=== PATIENT | female | born 1940 | race African-American/Black ===

== ENCOUNTER 2021-07-14 10:14 | Emergency (ER) | payer MEDICARE, OTHER ==
[~2021-07-14] VITALS: Ht 162.6 cm; Wt 51.3 kg
[~2021-07-14 10:14] MED LIST: ASPI81CH43
[2021-07-14 10:15] VITALS: BP 145/85
[2021-07-14 11:28] LABS: Urine Bacteria NONE SEEN /hpf (None Seen); Urine Blood 2+ /uL (Negative); Urine Mucus FEW (None Seen); Urine Specific Gravity 1.022 (1.001-1.035); Urine WBC 3 /hpf (0 - 5)
[2021-07-14] MEDS ORDERED: PHEN200T16 PO (12:35)
[2021-07-14] MEDS ORDERED: CIPR-173 PO (12:35)
== END 2021-07-14 12:58 | disposition home or self-care (01) ==
LOC: ER 10:14
DX: N39.0 Urinary tract infection, site not specified (principal); Z90.710 Acquired absence of both cervix and uterus
CPT/HCPCS: 81001; 87210

== ENCOUNTER 2021-07-22 09:06 | Emergency (ER) | payer OTHER ==
[~2021-07-22] VITALS: Ht 162.6 cm; Wt 51.7 kg
[~2021-07-22 09:06] MED LIST changes: +CIPR-173 PO; +PHEN200T16 PO
[2021-07-22 09:16] VITALS: BP 133/79
[2021-07-22] MEDS ORDERED: CARB4TAB8 PO (10:53)
== END 2021-07-22 11:03 | disposition home or self-care (01) ==
LOC: ER 09:06
DX: T78.40XA Allergy, unspecified, initial encounter (principal); Z87.440 Personal history of urinary (tract) infections; Z90.710 Acquired absence of both cervix and uterus; X58.XXXA Exposure to other specified factors, initial encounter

== ENCOUNTER 2025-03-03 19:26 | Inpatient (IN) | payer OTHER ==
[~2025-03-03] VITALS: Ht 162.6 cm; Wt 50.3 kg
[~2025-03-03 19:26] MED LIST changes: +CARB4TAB8 PO; +PHEN-922 PO; -PHEN200T16 PO
[2025-03-03 20:23] LABS: Hematocrit 38.6 % (36.0-46.0); Hemoglobin 12.4 g/dL (12.2-16.2); Mean Corpuscular Hemoglobin 28.0 pg (28.0-32.0); Mean Corpuscular Volume 86.8 fL (80.0-100.0); Nucleated Red Blood Cells % 0.0 %
[2025-03-03 20:27] LABS: Urine Protein, UAD 1+ (Negative)
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
[2025-03-03 20:33] LABS: Amphetamine Screen, Urine Neg (NEGATIVE); Barbiturate Scree,Urine Neg (NEGATIVE); Benzodiazephine Screen, Urine Neg (NEGATIVE); Cannabinoid Screen, Urine Neg (NEGATIVE); Cocaine Screen, Urine Neg (NEGATIVE); Opiate Scree,Urine Neg (NEGATIVE); Phencyclidine Screen, Urine Neg (NEGATIVE)
[2025-03-03 20:42] LABS: Alanine Aminotransferase 29 U/L (7-40); Albumin 4.3 g/dL (3.2-4.8); Alkaline Phosphatase 107 U/L (46-116); Anion Gap 11 (5-15); BUN/Creatinine Ratio 15.1 (10.0-20.0); Blood Urea Nitrogen 14 mg/dL (9-23); Calcium 9.6 mg/dL (8.7-10.4); Carbon Dioxide 26 mmol/L (20-31); Chloride 105 mmol/L (98-107); Sodium 142 mmol/L (136-145)
[2025-03-03 20:43] LABS: Bilirubin, Total 0.4 mg/dL (0.2-1.0)
[2025-03-03 20:45] LABS: Glucose 138 mg/dL (74-106); Potassium 3.5 mmol/L (3.5-5.1); Total Protein 8.3 g/dL (5.7-8.2)
[2025-03-04 07:40] VITALS: PULSE 89; RESP 17; O2SAT 99
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
[2025-03-04 19:43] VITALS: PULSE 93; RESP 18; O2SAT 97
[2025-03-04] MEDS: LORazepam 2MG/ML-1ML VIAL IV ONE (20:56)
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
[2025-03-04] MEDS ORDERED: ACETAMINOPHEN 325 MG TAB PO PRN (21:15)
[2025-03-04] MEDS ORDERED: NITROGLYCERIN 0.4 MG SL TAB SL PRN (21:15)
[2025-03-04] MEDS ORDERED: MORPHINE SULFATE INJ 2 MG/ml SYRG IV PRN (21:15)
[2025-03-04] MEDS ORDERED: DOCUSATE SOD 100 MG CAP PO PRN (21:15)
[2025-03-04] MEDS ORDERED: HYDROcodone-ACET 5/325MG TAB PO PRN (21:15)
[2025-03-04] MEDS ORDERED: ONDANSETRON HCL 4 MG/2 ML VIAL IV PRN (21:15)
[2025-03-04] MEDS: SODIUM CHLOR 0.9% PF (SALINE LOCK) 10ML VIAL/SYR IV SCH (22:00)
--- NOTE | 2025-03-04 22:30 | DVH ---
CT HEAD WITHOUT CONTRAST INDICATION: ALOC EXAM DATE: 03/04/2025 10:01 PM COMPARISON: None RADIATION DOSE: CTDIvol: 60.55 mGy, DLP: 1072.04 mGy*cm PROCEDURE: CT scans of the head were obtained from the vertex to the skull base. Sagittal and coronal reconstructions were provided. All CT scans at this medical facility are performed using dose modulation techniques as appropriate to a performed exam including the following: Automated exposure control was utilized; adjustment of the MA and/or KV according to patient size; and use of iterative reconstruction technique. FINDINGS: Evaluation is degraded by streak artifact referable to a presumed aneurysm coil, though clinical correlation is suggested. Within this limitation, there is no acute territorial infarct, intracranial hemorrhage, or mass effect. There are global involutional changes with compensatory prominence of the ventricles and sulci. Patchy periventricular and subcortical white matter hypoattenuation is nonspecific but may be related to small vessel ischemic disease. The orbits are normal. The paranasal sinuses and mastoid air cells are clear. The osseous structures are unremarkable. IMPRESSION: 1. Artifact degraded evaluation without evidence for acute territorial infarct, intracranial hemorrhage, or mass effect. 2. Age-related involutional changes. Chronic microvascular changes.
[2025-03-05 03:58] LABS: Hematocrit 35.1 % (36.0-46.0); Hemoglobin 11.4 g/dL (12.2-16.2); Mean Corpuscular Hemoglobin 27.8 pg (28.0-32.0); Mean Corpuscular Volume 85.7 fL (80.0-100.0); Nucleated Red Blood Cells % 0.1 %
[2025-03-05 04:18] LABS: Alanine Aminotransferase 21 U/L (7-40); Albumin 3.6 g/dL (3.2-4.8); Alkaline Phosphatase 92 U/L (46-116); Anion Gap 10 (5-15); BUN/Creatinine Ratio 14.9 (10.0-20.0); Bilirubin, Total 0.4 mg/dL (0.2-1.0); Blood Urea Nitrogen 10 mg/dL (9-23); Calcium 9.1 mg/dL (8.7-10.4); Carbon Dioxide 25 mmol/L (20-31); Glucose 88 mg/dL (74-106); Potassium 3.8 mmol/L (3.5-5.1); Sodium 144 mmol/L (136-145); Total Protein 6.7 g/dL (5.7-8.2)
[2025-03-05 04:26] LABS: Chloride 109 mmol/L (98-107)
[2025-03-05 08:00] VITALS: PULSE 84; RESP 18; O2SAT 97
[2025-03-05] MEDS: LORazepam 2MG/ML-1ML VIAL IV PRN (08:10)
[2025-03-05 12:42] VITALS: PULSE 80; RESP 20; O2SAT 97
--- NOTE | 2025-03-05 13:26 | DVHPN2 ---
Subjective confused in bed Reviewed: H&P Changes from previous H/P or p: No Changes Eyes: No Pain, No Vision change, No Conjunctivae inflammation, No Eyelid inflammation, No Other, No Redness ENT: No Ear pain, No Ear discharge, No Nose pain, No Nose discharge, No Nose congestion, No Mouth pain, No Mouth swelling, No Throat pain, No Throat swelling, No Other Cardiovascular: No Chest Pain, No Palpitations, No Orthopnea, No Paroxysmal Noc. Dyspnea, No Edema, No Lt Headedness, No Other Respiratory: No Cough, No Dry, No Shortness of breath, No SOB with excertion, No Wheezing, No Hemoptysis, No Pleuritic Pain, No Sputum, No Other Gastrointestinal: No Nausea, No Vomiting, No Abdominal Pain, No Diarrhea, No Constipation, No Melena, No Hematochezia, No Other Genitourinary: No Dysuria, No Frequency, No Incontinence, No Hematuria, No Retention, No Other Musculoskeletal: No other, No neck pain, No shoulder pain, No arm pain, No back pain, No hand pain, No leg pain, No foot pain Skin: No Rash, No Lesions, No Jaundice, No Bruising, No Other Objective Vitals Vital Signs Date Time Temp Pulse Resp B/P (MAP) Pulse Ox O2 Delivery O2 Flow Rate FiO2 03/05/25 12:00 85 17 141/84 (103) 96 03/05/25 08:00 97.9 97.9 03/05/25 08:00 Room Air* 0 21 General Appearance: Other (confused) HEENT: Atraumatic Cardiovascular: Regular rate, Normal S1, Normal S2 Abdomen: Normal bowel sounds Musculoskeletal: Other (moving all extremities) Medications Current Medications Medications Dose Ordered Sig/Mendez Route Start Time Stop Time Status Last Admin Dose Admin Lorazepam 0.5 mg Q8HP PRN IV 03/04/25 21:15 03/05/25 08:10 0.5 MG Sodium Chloride 10 ml Q8HR IV 03/04/25 22:00 03/05/25 06:08 10 ML Acetaminophen/ Hydrocodone Bitart 1 tab Q4HP PRN PO 03/04/25 21:15 Ondansetron HCl 4 mg Q4HP PRN IV 03/04/25 21:15 Docusate Sodium 100 mg BIDPRN PRN PO 03/04/25 21:15 Acetaminophen 650 mg Q6HP PRN PO 03/04/25 21:15 Nitroglycerin 0.4 mg Q5MINP PRN SL 03/04/25 21:15 Morphine Sulfate 2 mg Q30M PRN IV 03/04/25 21:15 Laboratory Results Laboratory Tests 03/05/25 03:30 Chemistry Test 03/05/25 03:30 Albumin 3.6 g/dL (3.2-4.8) Calcium Level 9.1 mg/dL (8.7-10.4) Total Protein 6.7 g/dL (5.7-8.2) LFT Test 03/05/25 03:30 Alanine Aminotransferase (ALT) 21 U/L (7-40) Alkaline Phosphatase 92 U/L (46-116) Aspartate Amino Transferase (AST) 36 U/L (13-40) Total Bilirubin 0.4 mg/dL (0.2-1.0) Urinalysis Test 03/03/25 19:54 Urine Color Yellow (Yellow) Urine Clarity Clear (Clear) Urine pH 6.5 (5.0-9.0) Urine Specific [place] 1.022 (1.001-1.035) Urine Protein 1+ (Negative) H Urine Ketones Negative (Negative) Urine Blood Negative /uL (Negative) Urine Nitrite Negative (Negative) Urine Bilirubin Negative (Negative) Urine Urobilinogen 2 mg/dL (Negative) H Urine Leukocyte Esterase Negative /uL (Negative) Urine RBC 1 /hpf (0 - 4) Urine Microscopic WBC 2 /HPF (0-5) Urine Squamous Epithelial Cells Few /hpf (<5) Urine Bacteria None seen /hpf (None Seen) Urine Hyaline Casts Few /lpf (0 - 2) Urine Mucus Few (None Seen) Urine Glucose Normal mg/dL (Normal) Assessment/Plan Assessment/Plan Altered mental status Encounter for psychiatric assessment CT negative Neurology eval Tele psychiatry Plan discussed with: Other (nurse) Date of Service: Mar 05, 2025 Billing Provider: AYUSH FERREIRA MD Common Visit Codes: [id number] INP/OBS CARE(HIGH) AYUSH FERREIRA MD Mar 05, 2025 13:26
[2025-03-05 16:59] VITALS: PULSE 83; RESP 19; O2SAT 99
[2025-03-05 17:00] VITALS: BP 129/81; PULSE 83; RESP 19; TEMP 98.5; O2SAT 99
--- NOTE | 2025-03-05 19:20 | BSKYNEURO ---
[place] [facility] Note # Demographics Consult Type: General Neurology Patient Location: Inpatient First Name: Salina Last Name: Roby Date of : 1940 Age: 84 Gender: Female Facility: [facility] Time of Initial Page (): 03/05/2025 17:52 First Contact with Site (): 03/05/2025 17:52 # HPI History: 84 yo presented with agitation and confusion. She has had problems with sundowning. Saw telepsychiatry yesterday because she has been having visual and auditory hallucinations for the last several months. She has also had problems with sleep. No history of stroke, glaucoma or macular degenerations # Exam Time of Exam (): 03/05/2025 18:49 Mental Status: - awake - alert and oriented x 3 - follows commands Language: - no aphasia Cranial Nerves: - extra ocular movements intact - PERRLA Motor: - normal strength Cerebellar: - normal cerebellar exam Additional Neurologic Exam: Cognitively had problems with abstraction, learning, calculation and recall, # PMH-FH-SH Past Medical History: - aneurysm Past Surgical History: aneurysm-intraarterial management Social History: - non-smoker - non-drinker Medications: ASA prn # Data Time Head CT personally read by me (): 03/05/2025 19:[address]: - no bleed - per radiologist read # Assessment Impression: - Other suspect underlying cognitive impairment/dementia and given poor sleep and hallucination, could be underlying lewy body dementia Differential Diagnosis: - Ischemic Stroke (Acute) - Seizure # Plan Labs: - Ammonia - TSH - B12 - thiamine RPR Imaging: (urgency: routine): - MRI Brain with AND without contrast Diagnostic Test: - EEG Therapy/Evaluation: - PT/OT evaluation - speech/swallow consultation Other: - If patient has any neurological deterioration please call me back immediately Additional Recommendations: Rec Follow Up with a behavioral neurologist and neuropsychologist for formal neuropsych testing # Demographics First Name: Salina Last Name: Roby Facility: [facility] Yes [place] AUGUSTINE Jr., MD Mar 05, 2025 19:20
[2025-03-05 20:10] VITALS: PULSE 89
[2025-03-05 21:00] VITALS: BP 135/69; PULSE 83; RESP 15; TEMP 98; O2SAT 98
[2025-03-06] VITALS (7 sets, daily range): BP systolic 112–126; BP diastolic 70–85; PULSE 72–121; RESP 16–18; TEMP 98–98.1; O2SAT 95–98
--- NOTE | 2025-03-06 12:57 | DVHPN2 ---
Subjective confused in bed Reviewed: H&P Changes from previous H/P or p: No Changes Eyes: No Pain, No Vision change, No Conjunctivae inflammation, No Eyelid inflammation, No Other, No Redness ENT: No Ear pain, No Ear discharge, No Nose pain, No Nose discharge, No Nose congestion, No Mouth pain, No Mouth swelling, No Throat pain, No Throat swelling, No Other Cardiovascular: No Chest Pain, No Palpitations, No Orthopnea, No Paroxysmal Noc. Dyspnea, No Edema, No Lt Headedness, No Other Respiratory: No Cough, No Dry, No Shortness of breath, No SOB with excertion, No Wheezing, No Hemoptysis, No Pleuritic Pain, No Sputum, No Other Gastrointestinal: No Nausea, No Vomiting, No Abdominal Pain, No Diarrhea, No Constipation, No Melena, No Hematochezia, No Other Genitourinary: No Dysuria, No Frequency, No Incontinence, No Hematuria, No Retention, No Other Musculoskeletal: No other, No neck pain, No shoulder pain, No arm pain, No back pain, No hand pain, No leg pain, No foot pain Skin: No Rash, No Lesions, No Jaundice, No Bruising, No Other Objective Vitals Vital Signs Date Time Temp Pulse Resp B/P (MAP) Pulse Ox O2 Delivery O2 Flow Rate FiO2 03/06/25 08:55 98.1 77 16 120/77 (91) 96 98.1 03/06/25 08:00 Room Air* 0 21 Intake/Output Intake and Output 03/06/25 07:00 Intake Total 800 ml Output Total 200 ml Balance 600 ml Intake Oral 800 ml Output Urine Total 200 ml # Voids 4 General Appearance: Other (confused) HEENT: Atraumatic Cardiovascular: Regular rate, Normal S1, Normal S2 Abdomen: Normal bowel sounds Musculoskeletal: Other (moving all extremities) Medications Current Medications Medications Dose Ordered Sig/Mendez Route Start Time Stop Time Status Last Admin Dose Admin Lorazepam 0.5 mg Q8HP PRN IV 03/04/25 21:15 03/05/25 08:10 0.5 MG Sodium Chloride 10 ml Q8HR IV 03/04/25 22:00 03/05/25 22:00 10 ML Acetaminophen/ Hydrocodone Bitart 1 tab Q4HP PRN PO 03/04/25 21:15 Ondansetron HCl 4 mg Q4HP PRN IV 03/04/25 21:15 Docusate Sodium 100 mg BIDPRN PRN PO 03/04/25 21:15 Acetaminophen 650 mg Q6HP PRN PO 03/04/25 21:15 Nitroglycerin 0.4 mg Q5MINP PRN SL 03/04/25 21:15 Morphine Sulfate 2 mg Q30M PRN IV 03/04/25 21:15 Laboratory Results Laboratory Tests 03/05/25 03:30 Urinalysis Test 03/03/25 19:54 Urine Color Yellow (Yellow) Urine Clarity Clear (Clear) Urine pH 6.5 (5.0-9.0) Urine Specific [place] 1.022 (1.001-1.035) Urine Protein 1+ (Negative) H Urine Ketones Negative (Negative) Urine Blood Negative /uL (Negative) Urine Nitrite Negative (Negative) Urine Bilirubin Negative (Negative) Urine Urobilinogen 2 mg/dL (Negative) H Urine Leukocyte Esterase Negative /uL (Negative) Urine RBC 1 /hpf (0 - 4) Urine Microscopic WBC 2 /HPF (0-5) Urine Squamous Epithelial Cells Few /hpf (<5) Urine Bacteria None seen /hpf (None Seen) Urine Hyaline Casts Few /lpf (0 - 2) Urine Mucus Few (None Seen) Urine Glucose Normal mg/dL (Normal) Assessment/Plan Assessment/Plan Altered mental status Encounter for psychiatric assessment CT negative Neurology eval>EEG seizure rule out, B12 levels Tele psychiatry>not decisional and no 5150 Plan discussed with: Other (nurse) My Orders Orders - AYUSH FERREIRA MD Procedure Category Date Status Time * [employer] Specialist CONS 03/05/25 Transmitted Consult Date of Service: Mar 06, 2025 Billing Provider: AYUSH FERREIRA MD Common Visit Codes: [id number] INP/OBS CARE(HIGH) AYUSH FERREIRA MD Mar 06, 2025 12:57
[2025-03-07 01:00] VITALS: BP 125/73; PULSE 84; RESP 17; TEMP 98.6; O2SAT 98
[2025-03-07 05:00] VITALS: BP 125/87; PULSE 77; RESP 17; TEMP 97.8; O2SAT 96
[2025-03-07 08:00] VITALS: RESP 16; O2SAT 95
[2025-03-07 09:00] VITALS: BP 107/13; PULSE 100; RESP 19; TEMP 98.1; O2SAT 100
[2025-03-07] MEDS: OLANZapine 5 MG TAB PO SCH (12:00)
[2025-03-07 13:00] VITALS: BP 102/68; PULSE 96; RESP 19; TEMP 97.5; O2SAT 98
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
[2025-03-07 17:00] VITALS: BP 113/73; PULSE 96; RESP 20; TEMP 98.3; O2SAT 91
[2025-03-07] MEDS ORDERED: HALOPERIDOL LACTATE 5 MG/ML INJ VIAL IM PRN (17:30)
[2025-03-07] MEDS: DONEPEZIL HYDROCHLORIDE 5 MG TAB PO SCH (22:00)
[2025-03-08 01:00] VITALS: BP 115/84; PULSE 118; RESP 18; O2SAT 97
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
[2025-03-08] MEDS: OLANZapine 5 MG TAB PO ONE (15:19)
[2025-03-08 16:48] VITALS: BP 140/78; PULSE 93; RESP 16; TEMP 97; O2SAT 98
[2025-03-08 20:00] VITALS: PULSE 60; RESP 18
[2025-03-08 21:00] VITALS: BP 121/83; PULSE 58; RESP 18; TEMP 98.4; O2SAT 99
[2025-03-09] VITALS (9 sets, daily range): BP systolic 110–140; BP diastolic 64–83; PULSE 78–134; RESP 15–19; TEMP 97.6–98.3; O2SAT 97–100
[2025-03-09 06:24] LABS: Base Excess -1.1 mmol/L (-2.0-3.0)
--- NOTE | 2025-03-09 07:12 | DVH ---
EXAM: CT HEAD WITHOUT CONTRAST INDICATION: aloc TECHNIQUE: CT of the head without intravenous contrast. Coronal and sagittal reformatted images are submitted. Radiation Dose : 1. Head: CT Dose: CTDI volume is 53.99 mGy. Dose-length product is 755.91 mGy*cm The dose indicators for CT are the volume Computed Tomography (CT) Dose Index (CTDIvol) and the Dose Length Product (DLP), and are measured in units of mGy and mGy-cm, respectively. These indicators are not patient dose, but values generated from the CT scanner acquisition factors. The report includes radiation exposure data for exposures received during this examination. All CT scans at this medical facility are performed using dose modulation techniques as appropriate to a performed exam including the following: Automated exposure control was utilized; adjustment of the MA and/or KV according to patient size; and use of iterative reconstruction technique. COMPARISON: CT HEAD WITHOUT CONTRAST on DOS: 03/04/25. FINDINGS: There is streak artifact from the presence of a metallic density in the midline near the skull base, presumably representing aneurysm coil mass. This severely limits evaluation of the brain parenchyma at that level. There is no evidence of acute intracranial hemorrhage, extra-axial collection, mass effect, midline shift, herniation or hydrocephalus. The ventricles, sulci and cisterns are age appropriate. The joyce-white differentiation is intact. The visualized paranasal sinuses and mastoid air cells are clear. No depressed calvarial fracture. The surrounding soft tissues are unremarkable. IMPRESSION: 1. Limited evaluation due to streak artifact from metallic density. 2. No acute intracranial abnormality.
--- NOTE | 2025-03-09 07:35 | RESUS ---
CODE ASSIST ASSESSSMENT Initial Information Code Assist Date: Mar 09, 2025 Code Assist Time: 05:45 Location of Arrest: [facility] Room # 218A Provider Name DR MCGRATH Time Notified: 05:45 Time PMD returned call: 05:45 Crash Cart Opened and Supplies: Yes Situation Situation comment: PT HAS A HISTORY OF DEMENTIA, WALKS ALL NIGHT WITH ASITTER THIS MORNING HAD A SYNCOPE EPISODE AT [facility]. Background Background: 84-year-old female who came to the ER via EMS for mental health issues. Patient is lives by herself at [place] and [place]. Her 2 children are concerned that she might not be able to take care of herself, with episodes wherein the patient would wander away from her house. Had an episode that patient was climbing an 8 foot wall just to get outside. Assessment Temperature (Fahrenheit): 98.3 Blood Pressure Systolic: 92 Blood Pressure Diastolic: 69 Respiratory Rate: 18 O2 Sat by Pulse Oximetry: 97 Assessment comment: PT LETHARGIC RESPONDS TO STERNAL RUB APPROPIATLY, RESPIRATIONS EVEN REGULAR .BS 138, CT HEAD DONE Recommendations/Interventions Procedures: Accu check Other Interventions PT WAS GIVEN 1L NS BOLUS Outcome Outcome: Transfer to Telemetry Team Members Team Members KODI SANTAMARIA RN HS, ADELA ICU CHARGE, ANISHA MAY CHARGE HARVEY RN, VU MAY, LORE RT KODI FISH Mar 09, 2025 07:35
[2025-03-09] MEDS: OLANZapine 5 MG TAB PO SCH (10:00)
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
--- NOTE | 2025-03-09 15:12 | ECG ---
[facility] Test Date: 2025-03-09 Test Time: 05:59:21 Pat Name: CAROLINE RUFF Department: Respiratoy Room: 0218T A Gender: F [employer] Officer: XIN : 1940 Requested By: RAKESH MOREIRA Order Number: [id number] Reading MD: Nathan Navas Measurements Intervals [place] Rate: 111 P: 265 [place]: 134 QRS: -42 QRSD: 77 T: 41 QT: 338 QTc: 460 Interpretive Statements Ectopic atrial tachycardia, unifocal Left anterior fascicular block Probable anteroseptal infarct, old Electronically Signed On 03-09-2025 18:53:26 PST by Nathan Navas Please click the below link to view image of tracing.
--- NOTE | 2025-03-09 22:49 | DVHINCON2 ---
Date of service: Mar 09, [address] Scottie Guido Reason for Consultation Ativan dementia, advise medications History of Present Illness Ms. Ca is a 84 years old female with a history of UTI, the patient was brought to the [facility] on 03/03/2025 with a chief complaint of cognitive dysfunction. At this time, the patient is sedated, arousable but does not not look at me or talked to me. No family available for the history, the history is obtained from chart review and talking to her nurse Apparently, her children were concerned that she may not able to take of herself, she had episodes where she would wander around her house, he also claimed on 8 ft or to try to get out In the hospital, she is easily agitated and get aggressive Cholesterol consultation, 03/05/2025: The patient was awake, alert and oriented x3, follows commands, no aphasia, no focal weakness numbness [phone] no answer Christina Urinalysis, 03/03/2025: WBC: 2, urine leukocyte esterase: Negative UDS, 03/03/2025: Negative Plasma alcohol, 03/10/2025: Normal CBC, 03/05/25: Unremarkable BMP 03/05/2025: Fine Liver function tests, 03/05/2025: Fine Vitamin B12, 03/07/2025: 483 TSH, 03/07/2025: 0.06 FT4, 03/07/2025: 1.42 CT head, 03/09/2025: 1. Limited evaluation due to streak artifact from metallic density. 2. No acute intracranial abnormality CT head, 03/04/2025: 1. Artifact degraded evaluation without evidence for acute territorial infarct, intracranial hemorrhage, or mass effect. 2. Age-related i nvolutional changes. Chronic microvascular changes. Past Medical History UTI,? History of brain aneurysm or AVM Past Surgical History Hysterectomy, ? Aneurysm clip, aneurysm coiling Family History: Cardiovascular disease G8 MOTHER FH: breast cancer G8 MOTHER Family History Heart disease, breast cancer Social History Unobtainable Allergies: Coded Allergies: Naproxen (Verified Allergy, Unknown, 11/08/17) Home Meds Active Scripts Carbinoxamine Maleate (Carbinoxamine Maleate) 4 Mg Tab, 4 MG PO TID PRN, #30 TAB 0 Refills Prov:FAVOT,NICK PA 07/22/21 Phenazopyridine HCl (Phenazopyridine Hydrochlo) 200 Mg Tab, 200 MG PO TID, #6 TAB Prov:ABRAHAM SHI NIKHIL 07/14/21 Ciprofloxacin Hcl (Cipro) 500 Mg Tab, 500 MG PO BID for 7 Days, #14 TAB Prov:ABRAHAM SHI NIKHIL 07/14/21 Reported Medications Aspirin (Asa) 81 Mg Ch 09/18/11 Current Medications Current Medications Medications (Trade) Dose Ordered Sig/Mendez Route PRN Reason Start Time Stop Time Status Last Admin Olanzapine (ZyPREXA Tablet) 10 mg DAILY PO 03/09/25 10:00 Review of Systems Unobtainable Vital Signs Vital Signs Date Time Temp Pulse Resp B/P (MAP) Pulse Ox O2 Delivery O2 Flow Rate FiO2 03/09/25 17:00 97.7 110 19 132/64 (86) 97 97.7 03/09/25 08:00 Room Air* 0 21 Physical Exam GENERAL EXAM: General: the patient is well developed and nourished. No acute distress. HEENT: Normocephalic, neck is supple, no carotid bruits. No mass.e RESPIRATORY: Normal respiratory effort with symmetrical lung expansion. Lungs clear to auscultation. CARDIOVASCULAR: Regular rate and rhythm with no murmurs. S1, S2. ABDOMEN: Soft, nontender, normal bowel sound NEUROLOGICAL: MENTAL STATUS: See above SPEECH, LANGUAGE, HIGHER CORTICAL FUNCTION: He does not vocalize CRANIAL NERVES: #2: Deferred #3,4,6: Pupils are equal, round and reactive. #5: Facial sensation intact in all three divisions bilaterally. Mandibular strength intact. #7: Facial muscles symmetrical and strength intact. #8: Deferred #9,10: Deferred. #11: Deferred #12: Deferred SENSATION: Okay to painful stimuli MOTOR: Normal tone in the upper and lower extremity. Normal muscle bulk. No fasciculations. No abnormal movements or posturing. He moves the arms and legs REFLEXES: Deep tendon reflexes are symmetrical. No pathological reflexes. CEREBELLAR/COORDINATION: Deferred GAIT/STATION: deferred. Labs/Diagnostic Data Labs Test 03/09/25 06:18 03/09/25 06:11 03/09/25 05:52 03/07/25 03:11 Range/Units Blood Gas Specimen Type Arterial Blood Gas Sample Site Right radial Blood Gas Patient Temperature 37.0 Arterial Blood Date Drawn [id number] Arterial Blood pH 7.415 7.350-7.450 Arterial Blood Partial Pressure CO2 36.8 32.0-45.0 mmHg Arterial Blood Partial Pressure O2 74.7 L 83.0-108.0 mmHg Arterial Blood HCO3 23.1 21.0-28.0 mmol/L Arterial Blood Oxygen Saturation 94.7 94.0-98.0 % Arterial Blood Base Excess -1.1 -2.0-3.0 mmol/L Arterial Blood Oxyhemoglobin 93.5 L 94.0-98.0 % Arterial Blood Carboxyhemoglobin 0.8 0.5-1.5 % Arterial Blood Methemoglobin 0.5 0.0-1.5 % Kelvin Test Yes Blood Gas Total Hemoglobin 12.70 12.0-16.0 g/dL Blood Gas Modality Room air FiO2 % 21.0 Magnesium Level 2.0 1.6-2.6 mg/dL Treponema pallidum Antibody Non-reactive Negative POC Glucose 132 H 70-106 mg/dl Ammonia < 10 L 11-32 umol/L Vitamin B12 Level 483 211-911 pg/mL Thyroid Stimulating Hormone (TSH) 0.06 L 0.55-4.78 uIU/mL Free Thyroxine (T4) Calculated 1.42 0.89-1.76 ng/dL Test 03/05/25 03:30 03/03/25 20:04 03/03/25 19:54 Range/Units White Blood Count 4.7 # 4.4-10.8 10^3/uL Red Blood Count 4.10 4.0-5.20 10^6/uL Hemoglobin 11.4 L 12.2-16.2 g/dL Hematocrit 35.1 L 36.0-46.0 % Mean Corpuscular Volume 85.7 80.0-100.0 fL Mean Corpuscular Hemoglobin 27.8 L 28.0-32.0 pg Mean Corpuscular Hemoglobin Concent 32.4 32.0-36.0 g/dL Red Cell Distribution Width 15.2 H 11.8-14.3 % Platelet Count 173 140-450 10^3/uL Mean Platelet Volume 8.6 6.9-10.8 fL Neutrophils (%) (Auto) 41.9 37.0-80.0 % Lymphocytes (%) (Auto) 42.6 10.0-50.0 % Monocytes (%) (Auto) 11.7 0.0-12.0 % Eosinophils (%) (Auto) 3.1 0.0-7.0 % Basophils (%) (Auto) 0.7 0.0-2.0 % Neutrophils # (Auto) 2.0 1.6-8.6 10 ^3/uL Lymphocytes # (Auto) 2.0 0.4-5.4 10 ^3/uL Monocytes # (Auto) 0.6 0-1.3 10 ^3/uL Eosinophils # (Auto) 0.1 0-0.8 10 ^3/uL Basophils # (Auto) 0 0-0.2 10 ^3/uL Nucleated Red Blood Cells 0.1 % Sodium Level 144 136-145 mmol/L Potassium Level 3.8 3.5-5.1 mmol/L Chloride Level 109 H 98-107 mmol/L Carbon Dioxide Level 25 20-31 mmol/L Anion Gap 10 5-15 Blood Urea Nitrogen 10 9-23 mg/dL Creatinine 0.67 0.550-1.02 mg/dL Glomerular Filtration Rate Calc 85 >90 mL/min BUN/Creatinine Ratio 14.9 10.0-20.0 Serum Glucose 88 74-106 mg/dL Calcium Level 9.1 8.7-10.4 mg/dL Total Bilirubin 0.4 0.2-1.0 mg/dL Aspartate Amino Transferase (AST) 36 13-40 U/L Alanine Aminotransferase (ALT) 21 7-40 U/L Alkaline Phosphatase 92 46-116 U/L Total Protein 6.7 5.7-8.2 g/dL Albumin 3.6 3.2-4.8 g/dL Plasma/Serum Blood Alcohol < 3.0 <10 mg/dL Urine Color Yellow Yellow Urine Clarity Clear Clear Urine pH 6.5 5.0-9.0 Urine Specific [place] 1.022 1.001-1.035 Urine Protein 1+ H Negative Urine Ketones Negative Negative Urine Blood Negative Negative /uL Urine Nitrite Negative Negative Urine Bilirubin Negative Negative Urine Urobilinogen 2 H Negative mg/dL Urine Leukocyte Esterase Negative Negative /uL Urine RBC 1 0 - 4 /hpf Urine Microscopic WBC 2 0-5 /HPF Urine Squamous Epithelial Cells Few <5 /hpf Urine Bacteria None seen None Seen /hpf Urine Hyaline Casts Few 0 - 2 /lpf Urine Mucus Few None Seen Urine Glucose Normal Normal mg/dL Urine Opiates Screen Neg NEGATIVE Urine Fentanyl Screen Neg NEGATIVE Urine Barbiturates Screen Neg NEGATIVE Urine Phencyclidine Screen Neg NEGATIVE Urine Amphetamines Screen Neg NEGATIVE Urine Benzodiazepines Screen Neg NEGATIVE Urine Cocaine Screen Neg NEGATIVE Urine Cannabinoids Screen Neg NEGATIVE Assessment Cognitive dysfunction Dementia/Alzheimer disease, based on documentation in the chart, the patient may not have advanced dementia yet Metabolic encephalopathy Toxic encephalopathy Abnormal CT brain, ? Coiled aneurysm Plan/Recommendation Monitoring Supportive treatment Telemetry EEG MRI head Aricept Olanzapine Avoid carbinoxamine, Benadryl and similar medications A trial of Remeron 15 mg at bedtime for insomnia and behavior More recommendation per clinical course Prognosis: Poor This medical document was created using an electronic medical record system with [employer] dictation system. Although this document has been carefully reviewed, there may still be some phonetic and typographical errors. These areas are purely typographical due to imperfections of the software programs, and do not reflect any compromise in the patient's medical care. Plan discussed with: Other DILIA VEGA MD Mar 09, 2025 22:49
[2025-03-10] VITALS (8 sets, daily range): BP systolic 103–144; BP diastolic 67–89; PULSE 78–140; RESP 14–18; TEMP 97.2–97.8; O2SAT 98–100
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
[2025-03-10] MEDS: SODIUM CHLORIDE 0.9% 500 ML IV ONE (17:25)
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
[2025-03-10] MEDS: MIRTAZAPINE 30 MG TAB PO SCH (22:00)
[2025-03-11 01:00] VITALS: BP 125/68; PULSE 127; RESP 16; TEMP 97.5; O2SAT 98
[2025-03-11 08:00] VITALS: O2SAT 98
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
[2025-03-11 18:51] VITALS: BP 119/81; PULSE 96; RESP 17; TEMP 98.6; O2SAT 99
[2025-03-11 20:00] VITALS: O2SAT 98
--- NOTE | 2025-03-11 20:36 | DVHPN2 ---
Progress Note - Dictate Date Seen: Mar 11, 2025 Medical Necessity Reason Pt with a Central, PICC or Fol: No Subjective Ms. Ca is a 84 years old female with a history of UTI, the patient was brought to the [facility] on 03/03/2025 with a chief complaint of cognitive dysfunction. I have seen and examined the patient, talked to her nurse, ju, she is awake, walking in the room, she is oriented to person, place, not a good historian She is not cooperative with her medications Past medical history: Golf ball size brain aneurysm, cervical cancer Past surgical history: Brain aneurysm accordingly in the [facility] in early 1999. Hysterectomy Family history: Heart attack, stomach cancer Social history: She was tobacco smoke, but no history of drug/alcohol abuse Urinalysis, 03/03/2025: WBC: 2, urine leukocyte esterase: Negative UDS, 03/03/2025: Negative Plasma alcohol, 03/10/2025: Normal CBC, 03/05/25: Unremarkable BMP 03/05/2025: Fine Liver function tests, 03/05/2025: Fine Vitamin B12, 03/07/2025: 483 TSH, 03/07/2025: 0.06 FT4, 03/07/2025: 1.42 CT head, 03/09/2025: 1. Limited evaluation due to streak artifact from metallic density. 2. No acute intracranial abnormality CT head, 03/04/2025: 1. Artifact degraded evaluation without evidence for acute territorial infarct, intracranial hemorrhage, or mass effect. 2. Age-related involutional changes. Chronic microvascular changes. vital signs Vital Sign Date Time Temp Pulse Resp B/P (MAP) Pulse Ox O2 Delivery O2 Flow Rate FiO2 03/11/25 18:51 98.6 96 17 119/81 (94) 99 98.6 03/11/25 08:00 Room Air* 0 21 Total Intake and Output 03/10/25 03/10/25 03/11/25 15:00 23:00 07:00 Intake Total 240 ml 480 ml Balance 240 ml 480 ml medications Current Medications Medications Dose Ordered Sig/Mendez Route Start Time Stop Time Status Last Admin Dose Admin Lorazepam 0.5 mg Q8HP PRN IV 03/04/25 21:15 03/09/25 16:25 0.5 MG Sodium Chloride 10 ml Q8HR IV 03/04/25 22:00 03/11/25 16:13 10 ML Acetaminophen/ Hydrocodone Bitart 1 tab Q4HP PRN PO 03/04/25 21:15 Ondansetron HCl 4 mg Q4HP PRN IV 03/04/25 21:15 Docusate Sodium 100 mg BIDPRN PRN PO 03/04/25 21:15 Acetaminophen 650 mg Q6HP PRN PO 03/04/25 21:15 Nitroglycerin 0.4 mg Q5MINP PRN SL 03/04/25 21:15 Morphine Sulfate 2 mg Q30M PRN IV 03/04/25 21:15 Donepezil HCl 5 mg HS PO 03/07/25 22:00 03/09/25 21:53 5 MG Haloperidol Lactate 5 mg Q6HP PRN IM 03/07/25 17:30 Olanzapine 10 mg DAILY PO 03/09/25 10:00 Mirtazapine 15 mg HS PO 03/10/25 22:00 objective General: the patient is well developed and nourished. No acute distress. MENTAL STATUS: See above SPEECH, LANGUAGE, HIGHER CORTICAL FUNCTION: He does not vocalize CRANIAL NERVES: Pupils are equal, round and reactive. Normal conjugated eye movement Facial sensation intact in all three divisions bilaterally. Mandibular strength intact. Facial muscles symmetrical and strength intact. SENSATION: Okay to painful stimuli MOTOR: Normal tone in the upper and lower extremity. Normal muscle bulk. No fasciculations. No abnormal movements or posturing. Muscle power feels normal REFLEXES: Deep tendon reflexes are symmetrical. No pathological reflexes. CEREBELLAR/COORDINATION: No ataxia Gait: Unremarkable laboratory and microbiology Laboratory Tests 03/05/25 03:30 Test 03/05/25 03:30 Range/Units Serum Glucose 88 74-106 mg/dL Problem List Cognitive dysfunction Dementia/ ? 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 for agitation More recommendation per clinical course This medical document was created using an electronic medical record system with [employer] dictation system. Although this document has been carefully reviewed, there may still be some phonetic and typographical errors. These areas are purely typographical due to imperfections of the software programs, and do not reflect any compromise in the patient's medical care. Prognosis poor Dietary Evaluation Review Comments: Needs assistance for meal arrangement Refer to social for conderation of placement after d/c Expected Outcomes/Goals: gradual wt gains Plan discussed with: Other Total Time (mins): 35 DILIA VEGA MD Mar 11, 2025 20:36
[2025-03-12 05:00] VITALS: BP 111/63; PULSE 73; RESP 17; TEMP 97.4; O2SAT 99
[2025-03-12 08:00] VITALS: O2SAT 98
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
[2025-03-12 13:00] VITALS: BP 133/90; PULSE 88; RESP 18; TEMP 98.1; O2SAT 100
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
[2025-03-12 17:00] VITALS: BP 119/79; PULSE 118; RESP 16; TEMP 98.4; O2SAT 98
[2025-03-12] MEDS: Ensure HIGH Protein Chocolate 8oz Bottle PO SCH (18:00)
[2025-03-12 20:00] VITALS: O2SAT 98
--- NOTE | 2025-03-12 20:01 | DVHPN2 ---
Progress Note - Dictate Date Seen: Mar 12, 2025 Medical Necessity Reason Pt with a Central, PICC or Fol: No Subjective Ms. Ca is a 84 years old female with a history of UTI, the patient was brought to the [facility] on 03/03/2025 with a chief complaint of cognitive dysfunction. I have seen and examined the patient, talked to her nurse, ju, she is awake, she is oriented to person, place, she knows year and month, she is cooperative with me but was not with her nurse Tele psychiatrist consultation appreciated Past medical history: Golf ball size brain aneurysm, cervical cancer Past surgical history: Brain aneurysm accordingly in the [place] in early 1999. Hysterectomy Family history: Heart attack, stomach cancer Social history: She was tobacco smoke, but no history of drug/alcohol abuse Urinalysis, 03/03/2025: WBC: 2, urine leukocyte esterase: Negative UDS, 03/03/2025: Negative Plasma alcohol, 03/10/2025: Normal CBC, 03/05/25: Unremarkable BMP 03/05/2025: Fine Liver function tests, 03/05/2025: Fine Vitamin B12, 03/07/2025: 483 TSH, 03/07/2025: 0.06 FT4, 03/07/2025: 1.42 CT head, 03/09/2025: 1. Limited evaluation due to streak artifact from metallic density. 2. No acute intracranial abnormality CT head, 03/04/2025: 1. Artifact degraded evaluation without evidence for acute territorial infarct, intracranial hemorrhage, or mass effect. 2. Age-related involutional changes. Chronic microvascular changes. vital signs Vital Sign Date Time Temp Pulse Resp B/P (MAP) Pulse Ox O2 Delivery O2 Flow Rate FiO2 03/12/25 17:00 98.4 118 16 119/79 (92) 98 98.4 03/12/25 08:00 Room Air* 0 21 Total Intake and Output 03/11/25 03/11/25 03/12/25 15:00 23:00 07:00 Intake Total 20 ml 200 ml Balance 20 ml 200 ml medications Current Medications Medications Dose Ordered Sig/Mendez Route Start Time Stop Time Status Last Admin Dose Admin Lorazepam 0.5 mg Q8HP PRN IV 03/04/25 21:15 03/09/25 16:25 0.5 MG Sodium Chloride 10 ml Q8HR IV 03/04/25 22:00 03/10/25 05:50 10 ML Acetaminophen/ Hydrocodone Bitart 1 tab Q4HP PRN PO 03/04/25 21:15 Ondansetron HCl 4 mg Q4HP PRN IV 03/04/25 21:15 Docusate Sodium 100 mg BIDPRN PRN PO 03/04/25 21:15 Acetaminophen 650 mg Q6HP PRN PO 03/04/25 21:15 Nitroglycerin 0.4 mg Q5MINP PRN SL 03/04/25 21:15 Morphine Sulfate 2 mg Q30M PRN IV 03/04/25 21:15 Donepezil HCl 5 mg HS PO 03/07/25 22:00 03/09/25 21:53 5 MG Haloperidol Lactate 5 mg Q6HP PRN IM 03/07/25 17:30 Olanzapine 10 mg DAILY PO 03/09/25 10:00 Mirtazapine 15 mg HS PO 03/10/25 22:00 Enteral Nutritional Formula 240 ml TIDWM PO 03/12/25 18:00 03/12/25 18:00 240 ML objective General: the patient is well developed and nourished. No acute distress. MENTAL STATUS: See above SPEECH, LANGUAGE, HIGHER CORTICAL FUNCTION: He does not vocalize CRANIAL NERVES: Pupils are equal, round and reactive. Normal conjugated eye movement Facial sensation intact in all three divisions bilaterally. Mandibular strength intact. Facial muscles symmetrical and strength intact. SENSATION: Okay to painful stimuli MOTOR: Normal tone in the upper and lower extremity. Normal muscle bulk. No fasciculations. No abnormal movements or posturing. Muscle power feels normal REFLEXES: Deep tendon reflexes are symmetrical. No pathological reflexes. CEREBELLAR/COORDINATION: No ataxia Gait: Unremarkable laboratory and microbiology Laboratory Tests 03/05/25 03:30 Test 03/05/25 03:30 Range/Units Serum Glucose 88 74-106 mg/dL Problem List Cognitive dysfunction Dementia ? Alzheimer disease Psychosis Metabolic encephalopathy Toxic encephalopathy Abnormal CT brain, likely Coiled aneurysm Assessment/Plan Monitoring Supportive treatment Telemetry EEG MRI head Remeron Aricept Olanzapine 10 mg daily Haldol as needed for agitation Avoid carbinoxamine, Benadryl and similar medications Remeron 15 mg at bedtime for insomnia and behavior Haldol 5 mg muscular injection p.r.n. for agitation More recommendation per clinical course This medical document was created using an electronic medical record system with [employer] dictation system. Although this document has been carefully reviewed, there may still be some phonetic and typographical errors. These areas are purely typographical due to imperfections of the software programs, and do not reflect any compromise in the patient's medical care. Prognosis poor Dietary Evaluation Review Comments: Needs assistance for meal arrangement Refer to social for conderation of placement after d/c Expected Outcomes/Goals: gradual wt gains Plan discussed with: Other DILIA VEGA MD Mar 12, 2025 20:01
[2025-03-12 21:00] VITALS: BP 128/85; PULSE 125; RESP 16; TEMP 98; O2SAT 97
--- NOTE | 2025-03-13 06:30 | DVH ---
CHEST RADIOGRAPH Indication: SOB Technique: Single frontal view of the chest was obtained COMPARISON: None FINDINGS: Lines and Tubes: None Lungs: Mild pulmonary vascular congestion Pleura: No effusion. No pneumothorax. Cardiomediastinal contours: Unremarkable Bones: Unremarkable IMPRESSION: Mild pulmonary vascular congestion.
[2025-03-13 09:00] VITALS: BP 135/63; PULSE 73; RESP 14; TEMP 98; O2SAT 100
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
[2025-03-13 13:00] VITALS: BP 119/71; PULSE 71; RESP 18; TEMP 97.8; O2SAT 100
[2025-03-13 17:00] VITALS: BP 122/79; PULSE 63; RESP 18; TEMP 97.6; O2SAT 98
[2025-03-13 21:00] VITALS: BP 115/79; PULSE 85; RESP 18; TEMP 97.8; O2SAT 97
--- NOTE | 2025-03-13 21:40 | DVHPN2 ---
Progress Note - Dictate Date Seen: Mar 13, 2025 Medical Necessity Reason Pt with a Central, PICC or Fol: No Subjective Ms. Ca is a 84 years old female with a history of UTI, the patient was brought to the [facility] on 03/03/2025 with a chief complaint of cognitive dysfunction. I was asked to see him because he is not cooperative with her nurse. She referred her medications all she would only take it if doctor said so When I talked to her, she was alert, oriented to person, place, I have discussing, she still refused all her medications I have seen and examined the patient, talked to her nurse, ju, she is awake, she is oriented to person, place, she knows year and month, she is cooperative with me but was not with her nurse Urinalysis, 03/03/2025: WBC: 2, urine leukocyte esterase: Negative UDS, 03/03/2025: Negative Plasma alcohol, 03/10/2025: Normal CBC, 03/05/25: Unremarkable BMP 03/05/2025: Fine Liver function tests, 03/05/2025: Fine Vitamin B12, 03/07/2025: 483 TSH, 03/07/2025: 0.06 FT4, 03/07/2025: 1.42 CT head, 03/09/2025: 1. Limited evaluation due to streak artifact from metallic density. 2. No acute intracranial abnormality CT head, 03/04/2025: 1. Artifact degraded evaluation without evidence for acute territorial infarct, intracranial hemorrhage, or mass effect. 2. Age-related involutional changes. Chronic microvascular changes. vital signs Vital Sign Date Time Temp Pulse Resp B/P (MAP) Pulse Ox O2 Delivery O2 Flow Rate FiO2 03/13/25 20:05 Room Air* 0 21 03/13/25 17:00 97.6 63 18 122/79 (93) 98 97.6 Total Intake and Output 03/12/25 03/12/25 03/13/25 15:00 23:00 07:00 Intake Total 240 ml 10 ml Balance 240 ml 10 ml medications Current Medications Medications Dose Ordered Sig/Mendez Route Start Time Stop Time Status Last Admin Dose Admin Lorazepam 0.5 mg Q8HP PRN IV 03/04/25 21:15 03/09/25 16:25 0.5 MG Sodium Chloride 10 ml Q8HR IV 03/04/25 22:00 03/13/25 14:00 10 ML Acetaminophen/ Hydrocodone Bitart 1 tab Q4HP PRN PO 03/04/25 21:15 Ondansetron HCl 4 mg Q4HP PRN IV 03/04/25 21:15 Docusate Sodium 100 mg BIDPRN PRN PO 03/04/25 21:15 Acetaminophen 650 mg Q6HP PRN PO 03/04/25 21:15 Nitroglycerin 0.4 mg Q5MINP PRN SL 03/04/25 21:15 Morphine Sulfate 2 mg Q30M PRN IV 03/04/25 21:15 Donepezil HCl 5 mg HS PO 03/07/25 22:00 03/12/25 21:57 5 MG Haloperidol Lactate 5 mg Q6HP PRN IM 03/07/25 17:30 Mirtazapine 15 mg HS PO 03/10/25 22:00 03/12/25 21:57 15 MG Enteral Nutritional Formula 240 ml TIDWM PO 03/12/25 18:00 03/13/25 18:00 240 ML Quetiapine Fumarate 25 mg BID PO 03/13/25 22:00 objective General: the patient is well developed and nourished. No acute distress. MENTAL STATUS: See above SPEECH, LANGUAGE, HIGHER CORTICAL FUNCTION: He does not vocalize CRANIAL NERVES: Pupils are equal, round and reactive. Normal conjugated eye movement Facial sensation intact in all three divisions bilaterally. Mandibular strength intact. Facial muscles symmetrical and strength intact. SENSATION: Okay to painful stimuli MOTOR: Normal tone in the upper and lower extremity. Normal muscle bulk. No fasciculations. No abnormal movements or posturing. Muscle power feels normal REFLEXES: Deep tendon reflexes are symmetrical. No pathological reflexes. CEREBELLAR/COORDINATION: No ataxia Gait: Unremarkable laboratory and microbiology Laboratory Tests 03/05/25 03:30 Test 03/05/25 03:30 Range/Units Serum Glucose 88 74-106 mg/dL Problem List Cognitive dysfunction Dementia ? 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 for agitation Avoid carbinoxamine, Benadryl and similar medications More recommendation per clinical course This medical document was created using an electronic medical record system with [employer] dictation system. Although this document has been carefully reviewed, there may still be some phonetic and typographical errors. These areas are purely typographical due to imperfections of the software programs, and do not reflect any compromise in the patient's medical care. Prognosis poor Dietary Evaluation Review Comments: Needs assistance for meal arrangement Refer to social for conderation of placement after d/c Expected Outcomes/Goals: gradual wt gains Plan discussed with: Other DILIA VEGA MD Mar 13, 2025 21:40
[2025-03-14] VITALS (7 sets, daily range): BP systolic 121–137; BP diastolic 69–96; PULSE 80–110; RESP 18–20; TEMP 97.3–97.9; O2SAT 95–99
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
--- NOTE | 2025-03-15 10:42 | DVHPN2 ---
Progress Note - Dictate Date Seen: Mar 15, 2025 Medical Necessity Reason Pt with a Central, PICC or Fol: No Subjective Ms. Ca is a 84 years old female with a history of UTI, the patient was brought to the [facility] on 03/03/2025 with a chief complaint of cognitive dysfunction. I have seen and examined the patient, talked to her nurse, brunoter, she is awake, she is oriented to person, place, she knows year and month She is not cooperative with her nurse, she refused medications She wants to walk Urinalysis, 03/03/2025: WBC: 2, urine leukocyte esterase: Negative UDS, 03/03/2025: Negative Plasma alcohol, 03/10/2025: Normal CBC, 03/05/25: Unremarkable BMP 03/05/2025: Fine Liver function tests, 03/05/2025: Fine Vitamin B12, 03/07/2025: 483 TSH, 03/07/2025: 0.06 FT4, 03/07/2025: 1.42 CT head, 03/09/2025: 1. Limited evaluation due to streak artifact from metallic density. 2. No acute intracranial abnormality CT head, 03/04/2025: 1. Artifact degraded evaluation without evidence for acute territorial infarct, intracranial hemorrhage, or mass effect. 2. Age-related involutional changes. Chronic microvascular changes. vital signs Vital Sign Date Time Temp Pulse Resp B/P (MAP) Pulse Ox O2 Delivery O2 Flow Rate FiO2 03/14/25 21:00 97.9 110 19 130/81 (97) 95 97.9 03/14/25 20:00 Room Air* 0 21 Total Intake and Output 03/14/25 03/14/25 03/15/25 15:00 23:00 07:00 Intake Total 400 ml 240 ml Balance 400 ml 240 ml medications Current Medications Medications Dose Ordered Sig/Mendez Route Start Time Stop Time Status Last Admin Dose Admin Lorazepam 0.5 mg Q8HP PRN IV 03/04/25 21:15 03/09/25 16:25 0.5 MG Sodium Chloride 10 ml Q8HR IV 03/04/25 22:00 03/13/25 14:00 10 ML Ondansetron HCl 4 mg Q4HP PRN IV 03/04/25 21:15 Docusate Sodium 100 mg BIDPRN PRN PO 03/04/25 21:15 Acetaminophen 650 mg Q6HP PRN PO 03/04/25 21:15 Nitroglycerin 0.4 mg Q5MINP PRN SL 03/04/25 21:15 Donepezil HCl 5 mg HS PO 03/07/25 22:00 03/15/25 00:24 5 MG Haloperidol Lactate 5 mg Q6HP PRN IM 03/07/25 17:30 Mirtazapine 15 mg HS PO 03/10/25 22:00 03/15/25 00:24 15 MG Enteral Nutritional Formula 240 ml TIDWM PO 03/12/25 18:00 03/14/25 18:23 240 ML Quetiapine Fumarate 25 mg BID PO 03/13/25 22:00 03/15/25 00:24 25 MG objective General: the patient is well developed and nourished. No acute distress. MENTAL STATUS: See above SPEECH, LANGUAGE, HIGHER CORTICAL FUNCTION: No aphasia or dysarthria CRANIAL NERVES: Pupils are equal, round and reactive. Normal conjugated eye movement Facial sensation intact in all three divisions bilaterally. Mandibular strength intact. Facial muscles symmetrical and strength intact. SENSATION: Okay to painful stimuli MOTOR: Normal tone in the upper and lower extremity. Normal muscle bulk. No fasciculations. No abnormal movements or posturing. Muscle power feels normal REFLEXES: Deep tendon reflexes are symmetrical. No pathological reflexes. CEREBELLAR/COORDINATION: No ataxia Gait: Unremarkable laboratory and microbiology Laboratory Tests 03/05/25 03:30 Test 03/05/25 03:30 Range/Units Serum Glucose 88 74-106 mg/dL Problem List Cognitive dysfunction Dementia ? 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 for agitation Avoid carbinoxamine, Benadryl and similar medications More recommendation per clinical course This medical document was created using an electronic medical record system with [employer] system. Although this document has been carefully reviewed, there may still be some phonetic and typographical errors. These areas are purely typographical due to imperfections of the software programs, and do not reflect any compromise in the patient's medical care. Prognosis poor Dietary Evaluation Review Comments: Needs assistance for meal arrangement Refer to social for conderation of placement after d/c Expected Outcomes/Goals: gradual wt gains Plan discussed with: Other DILIA VEGA MD Mar 15, 2025 10:42
[2025-03-15 13:00] VITALS: BP 123/68; PULSE 85; RESP 17; TEMP 97.4; O2SAT 99
[2025-03-15 16:16] VITALS: RESP 19; O2SAT 98
[2025-03-15 16:45] VITALS: BP 126/85; PULSE 69; RESP 17; TEMP 97; O2SAT 97
== END 2025-03-15 18:28 | disposition home or self-care (01) | DRG 93 ==
LOC: EDUNIT# 19:26 → EDBD 19:26 → ER 19:26 → OVERFLOW 03-04 21:07 → TELE-CENTR 03-05 16:56 → CENTRAL 03-07 22:57 → TELE-CENTR 03-09 06:57 → CENTRAL 03-10 03:15
PROVIDERS: ADMIT Student in an Organized Health Care Education/Training Program; ATTEND Student in an Organized Health Care Education/Training Program
DX: G92.8 Other toxic encephalopathy (principal); E05.90 Thyrotoxicosis, unspecified without thyrotoxic crisis or storm; G30.9 Alzheimer's disease, unspecified; F17.200 Nicotine dependence, unspecified, uncomplicated; F02.80 Dementia in other diseases classified elsewhere, unspecified severity, without behavioral disturbance, psychotic disturbance, mood disturbance, and anxiety; Z88.1 Allergy status to other antibiotic agents; Z90.710 Acquired absence of both cervix and uterus; Z86.79 Personal history of other diseases of the circulatory system; Z91.199 Patient's noncompliance with other medical treatment and regimen due to unspecified reason; Z85.41 Personal history of malignant neoplasm of cervix uteri; Z80.3 Family history of malignant neoplasm of breast; Z80.0 Family history of malignant neoplasm of digestive organs; Z82.49 Family history of ischemic heart disease and other diseases of the circulatory system; Z79.899 Other long term (current) drug therapy
CPT/HCPCS: 36415; 36600; 70450; 71045; 80053; 80307; 80320; 81001; 82140; 82607; 82805; 82962; 83735; 84439; 84443; 85025; 86780; 93005; G0378